=== PATIENT | female | born 1950 | race African-American/Black ===

== ENCOUNTER 2016-07-17 13:21 | Day surgery (SDC) | payer BC ==
[2016-07-11 13:24] LABS: BASOPHILS 0.9 %; BASOPHILS ABSOLUTE 0.02 10/3/uL (0.0-0.16); EOSINOPHILS 4.3 %; HEMATOCRIT 39.8 % (36.0-48.0); HEMOGLOBIN 13.1 g/dL (12.0-16.0); LYMPHOCYTES 44.3 %; LYMPHOCYTES ABSOLUTE 1.04 10/3/uL (0.67-4.30); MEAN CORPUSCULAR HEMOGLOB 30.3 pg (26.0-34.0); MEAN CORPUSCULAR VOLUME 91.9 fL (80-100); MEAN PLATELET VOLUME 10.4 fL (9.2-13.0); MONOCYTES 7.7 %; MONOCYTES ABSOLUTE 0.18 10/3/uL (0.21-1.20); NEUTROPHILS 42.8 %; NEUTROPHILS ABSOLUTE 1.01 10/3/uL (2.02-8.40); PLATELET COUNT 326 10/3/uL (150-400); RBC DISTRIBUTION WIDTH 13.5 % (12.0-16.0); RED CELL COUNT 4.33 10/6/uL (4.0-5.6)
[2016-07-11 13:35] LABS: PARTIAL THROMBO TIME 28.8 SEC (22.5-37.2)
[2016-07-11 13:37] LABS: BUN (BLOOD UREA NITROGEN) 12 MG/DL (6-23); CALCIUM, SERUM 8.8 MG/DL (8.5-10.4); CHLORIDE, SERUM 108 MMOL/L (96-112); CO2 (CARBON DIOXIDE) 31 MMOL/L (24-34); GFR AFRICAN AMERICAN 78 ML/MIN (>=60); GFR NON AFRICAN AMERICAN 68 ML/MIN (>=60); POTASSIUM, SERUM 3.8 MMOL/L (3.5-5.3); SODIUM, SERUM 146 MMOL/L (135-148)
[2016-07-11 13:38] LABS: GLUCOSE, SERUM 46 MG/DL (60-99); MEAN CORPUS HGB CONC 32.9 g/dL (32.0-36.0); WHITE BLOOD CELLS 2.4 10/3/uL (4.5-10.5)
[2016-07-11 13:39] LABS: MANUAL DIFF NO %
--- NOTE | ~2016-07-17 | OP ---
Record Of Operation [facility] [address] [place]. [address] NAME: MIAH HDEZ : 54 STATUS : REG [facility] PAT#: [id number] AGE: 66 ADM/REG DATE : 07/17/16 MR#: [id number] REPORT SERV DATE: 07/17/16 DICTATED BY: TIMOTHY DILLON DATE: 07/17/16 REPORT STATUS : Draft TRANSCRIBED BY: MODL DATE: 07/17/16 DATE OF PROCEDURE: PREOPERATIVE DIAGNOSIS: Bladder lesion. POSTOPERATIVE DIAGNOSIS: Bladder lesion. PROCEDURE PERFORMED: Cystoscopy, bladder biopsy, fulguration. SURGEON: Timothy Dillon M.D. ANESTHESIA: General. ESTIMATED BLOOD LOSS: 5 mL. INDICATIONS: This is a 66-year-old black female, who has had a history of urinary tract infection and microhematuria. Office endoscopy has revealed an angry-looking, red anterior bladder wall lesion. We are planning on cystoscopy and biopsy and fulguration, etc. under anesthesia risks of infection, bleeding, failure, etc. were reviewed. PROCEDURE IN DETAIL: The patient was taken to the operating room and underwent a general anesthetic. She was placed in the lithotomy position on the table, and her external genitalia were sterilely prepped and draped. The 22-Brazilian cystoscope sheath with 30-degree lens was inserted under direct vision per urethra with the aid of the video monitor. The bladder was thoroughly inspected. There was a mild cystocele. There were single orifices bilaterally. There were no stones or overt tumors in the bladder. High up on the posterior wall, there was a patch of angry red tissue, which measured a little less than a cm in size. More up on the anterior wall, there was an unusual protrusion of mucosa, which almost looked like it had a tiny orifice located centrally. The cold cup biopsies were used to take four cold cup biopsies of the abnormal red area and then two cold cup biopsies were taken of the small area of protruding mucosa that looked unusual. The Bugbee electrode was used to thoroughly fulgurate both of these sites, which were clearly separate from each other and unrelated. All of the abnormal tissue within the reddened area was thoroughly fulgurated, and the other biopsy site on the anterior wall was also thoroughly fulgurated. At the conclusion of this process, there did not appear to be any significant abnormal mucosa remaining. There was no bleeding from the wounds. The bladder was reinspected with no new findings and the bladder was then emptied and the endoscopic apparatus was withdrawn. The urethral mucosa looked normal. The patient tolerated the procedure very well. There were no complications. She was taken to recovery in stable condition. DS/PRATIBHA Timothy Dillon M.D. Record Of Operation [address] [address] NAME: MIAH HDEZ : 54 STATUS : REG [facility] PAT#: [id number] AGE: 66 ADM/REG DATE : 07/17/16 MR#: [id number] REPORT SERV DATE: 07/17/16 DICTATED BY: TIMOTHY DILLON DATE: 07/17/16 REPORT STATUS : Draft TRANSCRIBED BY: PRATIBHA DATE: 07/17/16 / [id number] CC: Timothy Dillon M.D.
[~2016-07-17 13:21] MED LIST: ADVIL PO; CLARIT10 PO; DITRO5 PO; T PO
== END 2016-07-17 19:20 | disposition home or self-care (01) ==
LOC: SDC 13:21
PROVIDERS: Urology
PROC: 0TBB8ZX Excision of Bladder, Via Natural or Artificial Opening Endoscopic, Diagnostic (ICD-10-PCS; principal; 2016-07-17 15:30)
DX: N30.20 Other chronic cystitis without hematuria (principal); Z86.69 Personal history of other diseases of the nervous system and sense organs; Z91.040 Latex allergy status; Z88.1 Allergy status to other antibiotic agents; Z88.5 Allergy status to narcotic agent; Z88.8 Allergy status to other drugs, medicaments and biological substances; Z79.899 Other long term (current) drug therapy
CPT/HCPCS: 71020; 80048; 82962; 85025; 85610; 85730; 88305; 88341; 88342; 93005; J2405; J3010; Q9967